=== PATIENT | male | born 1955 | race Caucasian/White ===

== ENCOUNTER → 2020-11-15 | Outpatient (CLI) | payer OTHER ==
[~2020-11-15] MED LIST: ASA81BEC PO; CHLORTHALIDONE25 MG PO; COLACE100 MG PO; HYDROCODON-ACE1 EAC7 PO; LIPITOR40 MG PO; MIRALAX17 GM PO; OLANZAPINE5 M1 PO; ROBAXIN 750 MG750 MG PO; SERTRALINE HCL100 MG PO; TYLENOL EXTRA500 MG PO
[2020-11-15 09:41] LABS: URINE BILIRUBIN NEGATIVE (Negative); URINE BLOOD NEGATIVE (Negative); URINE CLARITY CLEAR; URINE COLOR YELLOW; URINE GLUCOSE-RANDOM* NEGATIVE (Negative); URINE KETONES NEGATIVE (Negative); URINE LEUKOCYTES-REFLEX NEGATIVE (Negative); URINE NITRITE-REFLEX NEGATIVE (Negative); URINE PROTEIN (DIPSTICK) NEGATIVE (Negative); URINE SPECIFIC GRAVITY 1.015 (1.005-1.035)
[2020-11-15 09:53] LABS: INR 0.94; PROTIME 10.3 Seconds (9.3-11.4)
== END ==
LOC: LAB 11-14 11:40
PROVIDERS: ATTEND Orthopaedic Surgery
DX: Z01.812 Encounter for preprocedural laboratory examination (principal); Z20.822 Contact with and (suspected) exposure to COVID-19

== ENCOUNTER 2020-11-20 07:15 | Inpatient (IN) | payer OTHER ==
[~2020-11-20] VITALS: Ht 170.2 cm; Wt 126.1 kg
[~2020-11-20 07:15] MED LIST changes: -COLACE100 MG PO; -MIRALAX17 GM PO; -ROBAXIN 750 MG750 MG PO
[2020-11-20 08:25] VITALS: BP 166/96
--- NOTE | 2020-11-20 11:56 | O ---
[facility] [place] [address] OPERATIVE REPORT Name: JACKLYN GONZÁLES Room #: 150-1 ADM IN M.R.#: [id number] Admission: 11/20/20 Attend Phys: Alvarez Avila MD Discharge: Date of : 51 Report #: [id number] THIS REPORT FOR: cc: Giorgi Pelayo MD, William MD Clymer,Alvarez Mckinney MD ~ DATE OF SERVICE: 11/20/2020 PREOPERATIVE DIAGNOSIS: End-stage degenerative arthritis, left hip. POSTOPERATIVE DIAGNOSIS: End-stage degenerative arthritis, left hip. PROCEDURE: Left total hip replacement. SURGEON: Alvarez Avila MD INDICATIONS: This heavy 65-year-old gentleman presents with severe progressive left hip pain. Clinical and x-ray evaluation reveal severe end-stage degenerative arthritis much more severe than on the opposite right hip. He has tried conservative measures without success and has decided to go ahead with left total hip replacement. DESCRIPTION OF PROCEDURE: The patient was taken to the operating room where he was placed under general anesthesia. Prophylactic intravenous antibiotics were administered. He was turned to the right lateral decubitus position. The left hip, thigh and leg were meticulously prepped and draped. A slightly curving skin incision was made centered over the greater trochanter and carried through fascia to expose the posterior aspect of the hip joint. The short external rotators and capsule were taken down and preserved and tagged with several #1 Tevdek sutures. The hip was dislocated posteriorly. Marked degenerative change on both the femoral head and acetabulum was noted. A femoral neck osteotomy was performed. The canal was prepared using the August and Nephew hip system. A size 14 Synergy trial stem fit nicely. The calcar was trimmed down to an appropriate level. The acetabulum was exposed with some difficulty given his large size. There was a good deal of spurring around the margin, which was debrided. The acetabulum was then prepared sequentially with reamers and found to be best suited for a size 56 mm acetabular component. The stick tight 56 mm shell was then inserted in alignment with his true acetabulum, which placed this at about 45 degrees off of vertical and about 20 degrees of anteversion. It seated nicely and appeared to be secure. In addition, 3 cancellous screws were placed through the apical holes engaging good periacetabular bone with excellent purchase. A 40 mm acetabular liner was then inserted, positioning the 20-degree elevated rim at about the 10 o'clock posterior position. It seated nicely and appeared to be secure. The permanent femoral stem was then inserted. The August and Nephew size 14 Synergy porous femoral stem was selected. This was impacted [address] [address] OPERATIVE REPORT Name: JACKLYN GONZÁLES Room #: 150-1 [facility] IN M.R.#: [id number] Admission: 11/20/20 Attend Phys: Alvarez Avila MD Discharge: Date of : 51 Report #: [id number] into position, placing this in about 20 degrees of anteversion. It seated nicely and appeared to be secure. A trial reduction was performed and the hip seemed best suited for a -4 mm neck length as there was significant soft tissue contracture related to his preoperative degenerative change. This resulted in better movement with full hip extension and good stability when tested in flexion and rotation. The permanent cobalt chrome 40 mm head with a -4 mm neck length was selected. This was impacted on the Carr taper and seated nicely. The hip was once again reduced. Alignment, range of motion, stability and leg length were assessed and felt to be satisfactory. At this point, good hemostasis was confirmed. The capsule and short external rotators were repaired back to bone using #1 Tevdek sutures, passed through small drill holes in the greater trochanter, this added nicely to hip stability. A single Hemovac was left in the wound exiting through a separate stab incision. The fascia was closed with multiple #1 Vicryl sutures. The abundant adipose tissues and subcutaneous tissues were closed with 0 Monocryl. The skin was closed with skin tere. A sterile dressing was applied. The patient was awakened and returned to recovery room in good condition. <ELECTRONICALLY SIGNED> By: Alvarez Avila MD 11/20/20 1156 1139 [id number] Alvarez Avila MD /nt
[2020-11-20 13:20] VITALS: BP 156/85
[2020-11-20 13:45] VITALS: BP 150/92
[2020-11-20] MEDS ORDERED: COLACE100 MG PO (14:09)
[2020-11-20] MEDS ORDERED: MIRALAX17 GM PO (14:09)
[2020-11-20 19:16] VITALS: BP 144/75
--- NOTE | 2020-11-20 19:55 | NUR ---
ASSUMED PT CARE AROUND 1330. PT ALERT X ORIENTED 4. ON ROOM AIR. IV LEFT HAND WITH 1/2 NS AT 100ML/HR.RAYMOND DRESSING IN PLACE. SCDS AND TEDS ON. ICE BAG PROVIDED. HEMOVAC NEAR LEFT HIP AND DRAINED TOTAL OF 110ML FOR THE SHIFT. ON REGULAR DIET, EATING AND DRINKING WELL. WAS AT BEDSIDE TILL 1800. PT USEDURINALS FOR URINATION AND PEE'D ONE TIME FOR DAY SHIFT. FALL PREAUTION IN PLACE. CALL LIGHT WITHIN REACH. WILL CALL APPROPRIATELY. SHIFT REPORT GIVEN TO NIGHT NURSE.
--- NOTE | 2020-11-21 01:10 | NUR ---
ASSESSED AT START OF SHIFT. PT A&OX4. C/O PAIN 10/10 PO PAIN MEDICATION GIVEN ROUND THE CLOCK. ICE PACK PROVIDED FOR COLD THERAPY. IV INTACT AND FLUIDS INFUSING. URINAL AT BED SIDE. RAYMOND DRESSING, SCD'S AND ОЛЬГА HOSE ON EXT. FALL PREC IN PLACE AND CALL LIGHT AT REACH WILL CONT TO MONITOR.
[2020-11-21 04:23] VITALS: BP 139/83
[2020-11-21 07:55] VITALS: BP 146/80
[2020-11-21 08:21] LABS: ABSOLUTE NEUTROPHILS 7.7 thou/uL (1.4-8.2); BASOPHILS 0.5 % (0.0-2.0); EOSINOPHILS 0.1 % (0.0-3.0); LYMPHOCYTES 12.9 % (24.0-44.0); MCH 28.4 pg (26.0-34.0); MCHC 32.5 g/dL (28.0-37.0); MCV 87.2 fL (80.0-100.0); MONOCYTES 12.9 % (1.0-8.0); PLATELET COUNT 226 thou/uL (150-400); POLYS 73.6 % (36.0-66.0); RBC 4.92 mil/uL (4.50-6.00); RDW 14.2 % (10.5-14.5); WBC 10.5 thou/uL (4.0-11.0)
[2020-11-21 08:31] LABS: CALCIUM 8.4 mg/dL (8.5-10.1); CREATININE 1.1 mg/dL (0.7-1.3); MAGNESIUM 1.7 mg/dL (1.8-2.4); POTASSIUM 3.6 mmol/L (3.5-5.1)
--- NOTE | 2020-11-21 12:17 | NUR ---
Assumed pt care this am. Pt is alert & oriented x4. Pt IV site on L Hand saline locked. Pt is currently sitting on the chair. Pt has scd, fany hoses, ryann dressing and ice bag. Pt c/o of pain and given pain medication. Removed hemovac this am. Pt denies nausea and vomiting during shift. Will continue to monitor pt. Follow POC.
--- NOTE | 2020-11-21 15:44 | NUR ---
ASSESSMENT: CM REVIEWED CHART AND SPOKE WITH PATIENT AND HIS AT THE BEDSIDE. PT IS ALERT AND ORIENTED X4. PT LIVES IN A [place]PL[place] LEVEL HOME WITH HIS . PT REPORTS THAT HE IS NORMALLY INDEPENDENT WITH ADLS AND AMBULATION. PT DOES HAVE A BORROWED WALKER AT HOME THAT HE WILL USE. PT REPORTS HE HAS ABOUT 6 STEPS WITH HANDRAILS TO EACH LEVEL. PT REPORTS THAT HE PREFERES TO HAVE HOME HEALTH WHEN HE LEAVES. PT REPORTS THAT HE HAS NO PREFERENCE OF AGENCY AND SUGGESTED TO CHECK WITH [facility]. CM FAXED REFERRAL TO [facility] AND AWAITING INPUT AT THIS TIME. PT IS POSSIBLE DISCHARGE IN 1-2 DAYS. PT REPORTS HE HAS BEEN TO A SNF IN THE PAST THAT WAS EITHER IN [place] OR [facility] BUT CANNOT RECALL THE NAME. CM WILL CONTINUE TO FOLLOW TO ASSIST NEEDED.
[2020-11-21 16:10] VITALS: BP 140/81
[2020-11-21 20:02] VITALS: BP 133/84
--- NOTE | 2020-11-22 03:48 | NUR ---
ASSESSED AT START OF SHIFT. PT A&OX4 RATES PAIN 6/10 ON LEFT HIP. OXYCODONE GIVEN FOR PAIN. URINAL BY BEDSIDE. RAYMOND DRESSING, TEDHOSE AND SCD'S ON LOWER EXT. FALL PREC IN PLACE AND CALL LIGHT AT REACH. PT DENIES N/V. WILL CONT WITH POC TILL EOS.
[2020-11-22 05:14] LABS: HEMOGLOBIN 13.4 gm/dL (14.0-18.0); MCHC 33.5 g/dL (28.0-37.0); MCV 86.6 fL (80.0-100.0); RBC 4.61 mil/uL (4.50-6.00); RDW 13.9 % (10.5-14.5); WBC 10.9 thou/uL (4.0-11.0)
[2020-11-22 07:45] VITALS: BP 151/83
[2020-11-22 09:39] VITALS: BP 151/83
[2020-11-22] MEDS ORDERED: ROBAXIN 750 MG750 MG PO (13:29)
[2020-11-22 13:44] VITALS: BP 151/83
--- NOTE | 2020-11-22 13:44 | NUR ---
ON-GOING ASSESSMENT: CM REVIEWED CHART. PT HAS ORDERS TO DISCHARGE HOME TODAY. PT IS REQUESTING HOME HEALTH CARE AT DISCHARGE HE FEELS HE NEEDS THERAPY AT HOME BEFORE GETTING IN AND OUT OF HIS [place] MULTIPLE TIMES. CM NOTIFIED ATTENDING. CM FAXED DISCHARGE ORDERS TO [facility] AND CONFIRMED THEY RECEIVED THEM. PT REPORTS NO FURTHER NEEDS FROM [facility].
--- NOTE | 2020-11-22 14:09 | NUR ---
ASSUMED PT CARE AROUND 0700. PT ALERT X ORIENTED X4. ON ROOM AIR. IV LEFT HAND SALINE LOCKED.PICCO DRESSING IN PLACE. SCD/TEDS ON. 1 PERSON ASST WITH WALKER. PAIN CONTROLLED BY PAIN MEDS. PT IN THE ROOM. CALL LIGHT IN REACH. FALL PRECATION IN PLACE.WILL CONTINUE TO MONITOR.
--- NOTE | 2020-11-24 07:29 | D ---
[facility] [place] [address] DISCHARGE SUMMARY Name: JACKLYN GONZÁLES Room #: 448-P [facility] IN M.R.#: [id number] Admission: 11/20/20 Attend Phys: Alvarez Avila MD Discharge: 11/22/20 Date of : 51 Report #: [id number] THIS REPORT FOR: cc: Giorgi Pelayo MD, William MD Clymer,Alvarez Mckinney MD ~ DATE OF SERVICE: 11/22/2020 FINAL DIAGNOSIS: End-stage degenerative arthritis, left hip. OPERATIONS AND PROCEDURES: Left total hip arthroplasty. HISTORY OF PRESENT ILLNESS: This heavy, but otherwise well appearing 65-year-old gentleman presents with progressive left hip pain and deformity. He has elected to go ahead with total hip replacement. HOSPITAL COURSE: The patient was admitted and taken to the operating room on 11/20. He underwent left total hip replacement, which he tolerated quite nicely. Postoperatively, he made excellent progress. He was advanced from IV analgesics to oral analgesics and resumed a regular diet. The hip wound seems to be healing nicely without any problems. He was able to advance with physical therapy to independent ambulation using a walker with good balance. He was able to manage stairs nicely. He seems safe and functional and independent. He is anxious for hospital discharge at this time. DISCHARGE MEDICATIONS: Include Lipitor 40 mg daily, sertraline 150 mg daily, hydrocodone 10/325 one q. 4-6 hours p.r.n. for pain, Xarelto 10 mg daily. He will continue a regular diet and moderate activity at home with continued independent exercise as tolerated. I have asked him to call me if any problems or questions. We will otherwise plan to see him back for followup office visit in 1 week. <ELECTRONICALLY SIGNED> By: Alvarez Avila MD 11/24/20 0729 [id number] Alvarez Avila MD /nt
== END 2020-11-22 15:00 | disposition home health service (06) | DRG 470 ==
LOC: TBA 07:15 → 4S 07:15 → PRE 08:36 → OR 09:25 → EDSTATUS 09:29 → 4S 13:27 → PRE 14:58 → 4S 11-22 15:00
PROVIDERS: Nurse Practitioner; ADMIT Orthopaedic Surgery; ATTEND Orthopaedic Surgery
PROC: 0SRB01Z Replacement of Left Hip Joint with Metal Synthetic Substitute, Open Approach (ICD-10-PCS; principal; 2020-11-20)
DX: M16.12 Unilateral primary osteoarthritis, left hip (principal); Z68.41 Body mass index [BMI] 40.0-44.9, adult; I10 Essential (primary) hypertension; E78.5 Hyperlipidemia, unspecified; F32.9 Major depressive disorder, single episode, unspecified; E66.01 Morbid (severe) obesity due to excess calories; E78.00 Pure hypercholesterolemia, unspecified; Z98.42 Cataract extraction status, left eye; Z98.41 Cataract extraction status, right eye; Z79.899 Other long term (current) drug therapy
CPT/HCPCS: 10102; 50010; 50101; 50382; 50414; 51412; 53000; 53367; 56521; 56525; 56530; 57095; 70005